=== PATIENT | male | born 1955 | race Asian ===

== ENCOUNTER 2019-09-30 11:10 | Inpatient (IN) | payer MEDICAID ==
[~2019-09-30] VITALS: Ht 167.6 cm; Wt 75.7 kg
[2019-09-30 11:25] VITALS: Ht 167.6 cm; Wt 75.7 kg
[2019-09-30 12:45] LABS: CALCIUM 9.1 mg/dL (8.5-10.1); CARBON DIOXIDE 23.9 mmol/L (21-32); CHLORIDE SERUM 102 mmol/L (98-107); CREATININE SERUM 0.9 mg/dL (0.7-1.3); GFR1 > 60 mL/min; GLUCOSE SERUM 130 mg/dL (74-106); POTASSIUM SERUM 3.6 mmol/L (3.5-5.1); SODIUM SERUM 138 mmol/L (136-145)
[2019-09-30 12:56] LABS: BASOPHIL % 0.3 % (0-2); PLATELET COUNT 326 x10^3mcL (130-400); RED CELL DISTRIBUTION WIDTH 13.2 % (11.5-14.5)
[2019-09-30 12:58] LABS: ALBUMIN 3.5 g/dL (3.4-5.0); ALKALINE PHOSPHATASE 97 U/L (46-116); ALT/SGPT 29 U/L (16-63); AST/SGOT 15 U/L (15-37); BILIRUBIN TOTAL 1.2 mg/dL (0.20-1.00); T4(THYROXINE) 9.9 ug/dL (4.7-13.3)
[2019-09-30 14:48] LABS: UA SPECIFIC GRAVITY <=1.005 (1.005-1.035); microscopic required? NO; urine erythrocyte NEGATIVE (NEGATIVE)
[2019-09-30 15:18] VITALS: BP 128/79
[2019-09-30 16:23] LABS: MAGNESIUM 1.8 mg/dL (1.8-2.4); PHOSPHOROUS 3.9 mg/dL (2.5-4.9)
[2019-09-30 20:54] VITALS: BP 121/83
[2019-10-01 05:21] VITALS: BP 97/61
[2019-10-01 07:10] LABS: BASOPHIL % 0.4 % (0-2); PLATELET COUNT 319 x10^3mcL (130-400); RED CELL DISTRIBUTION WIDTH 12.9 % (11.5-14.5)
[2019-10-01 07:29] VITALS: BP 110/71
[2019-10-01 07:35] LABS: CALCIUM 8.5 mg/dL (8.5-10.1); CARBON DIOXIDE 26.4 mmol/L (21-32); CHLORIDE SERUM 104 mmol/L (98-107); CREATININE SERUM 0.8 mg/dL (0.7-1.3); GFR1 > 60 mL/min; GLUCOSE SERUM 101 mg/dL (74-106); POTASSIUM SERUM 4.1 mmol/L (3.5-5.1); SODIUM SERUM 140 mmol/L (136-145)
[2019-10-01 11:27] VITALS: BP 121/77
[2019-10-01 16:28] VITALS: BP 116/69
[2019-10-01 20:25] VITALS: BP 118/72
[2019-10-02 05:33] VITALS: BP 134/84
[2019-10-02 06:34] LABS: BASOPHIL % 0.7 % (0-2); PLATELET COUNT 356 x10^3mcL (130-400); RED CELL DISTRIBUTION WIDTH 12.2 % (11.5-14.5)
[2019-10-02 06:37] LABS: CALCIUM 8.9 mg/dL (8.5-10.1); CARBON DIOXIDE 26.4 mmol/L (21-32); CHLORIDE SERUM 105 mmol/L (98-107); CREATININE SERUM 0.8 mg/dL (0.7-1.3); GFR1 > 60 mL/min; GLUCOSE SERUM 116 mg/dL (74-106); POTASSIUM SERUM 4.1 mmol/L (3.5-5.1); SODIUM SERUM 141 mmol/L (136-145)
[2019-10-02 07:39] VITALS: BP 143/94
[2019-10-02] MEDS ORDERED: AUGMENTIN 875-1 EACH PO (09:08)
[2019-10-02 11:20] VITALS: BP 124/88
[2019-10-02 11:28] VITALS: BP 124/88
== END 2019-10-02 12:20 | disposition home or self-care (01) | DRG 710 ==
LOC: ED 11:10 → MU 14:00
PROVIDERS: Emergency Medicine; ADMIT Internal Medicine
PROC: 0D9P0ZZ Drainage of Rectum, Open Approach (ICD-10-PCS; principal; 2019-09-30)
DX: A41.9 Sepsis, unspecified organism (principal); L02.215 Cutaneous abscess of perineum; K61.1 Rectal abscess; I10 Essential (primary) hypertension; E11.9 Type 2 diabetes mellitus without complications; F17.210 Nicotine dependence, cigarettes, uncomplicated; Z79.899 Other long term (current) drug therapy
CPT/HCPCS: 82962; G0378; J0295; J1170; J2001; J3490; J7030; J7040; Q0092; Q9967